=== PATIENT | male | born 1950 | race American Indian/Alaskan Native ===

== ENCOUNTER 2018-03-11 15:12 | Emergency (ER) | payer MEDICARE ==
--- NOTE | 2018-03-11 17:19 | XRay Report ---
FINAL REPORT EXAM: XR KNEE 3V RT HISTORY: fall pain r/t fall TECHNIQUE: 3 views of right knee. PRIORS: None. FINDINGS: Considerable degenerative changes in all 3 joint compartments. Probable chondrocalcinosis in bilateral menisci. Possible small intra-articular osteocartilaginous bodies scattered in the joint compartment. No apparent fracture or dislocation. Small-moderate suprapatellar joint effusion diffuse peripatellar soft tissue edema. IMPRESSION: 1. No acute osseous abnormality. 2. Degenerative changes, joint effusion and soft tissue edema.
--- NOTE | 2018-03-11 17:21 | XRay Report ---
FINAL REPORT EXAM: XR HIP 2-3V RT HISTORY: pain f/t fall TECHNIQUE: AP view of pelvis and 2 views of right hip. PRIORS: None. FINDINGS: Degenerative changes in the bilateral hip joints, marked on the right and moderate on the left. No apparent fracture or dislocation. Soft tissues grossly unremarkable. IMPRESSION: 1. No acute osseous abnormality. 2. Degenerative changes.
--- NOTE | 2018-03-11 23:36 | Emergency Department Report ---
ED Lower Extremity HPI - General Chief Complaint: Fall Stated Complaint: LOWER BODY PAIN Time Seen by Provider: 03/11/18 23:28 Source: patient Mode of arrival: Wheelchair Limitations: No Limitations - History of Present Illness Initial Comments: Patient says he tripped and fell on Saturday and landed on his right heel since then he cannot walk. He also complained of right knee pain. MD Complaint: hip injury, knee injury -: Sudden Injury: Hip: Right, Knee: Right Type of Injury: blunt Place: home Severity scale (0 -10): 8 Improves With: rest Worsens With: movement Context: fall Associated Symptoms: unable to bear weight - Related Data Previous Rx's Medication Instructions Recorded Last Taken Type ALBUTEROL Inhaler [Proair] 2 puff IH QID PRN #1 inhalation 08/20/14 Unknown Rx Amlodipine Besylate [Norvasc] 5 mg PO DAILY #30 tablet 08/20/14 Unknown Rx Budesoni/Formotero 160-4.5(Nf) 2 puff IH BID #1 inha 08/20/14 Unknown Rx [Symbicort 160-4.5] Carvedilol [Coreg] 25 mg PO BID #60 tablet 08/20/14 Unknown Rx Cefuroxime Axetil [Ceftin] 500 mg PO Q12H #14 tablet 08/20/14 Unknown Rx Doxazosin [Cardura] 4 mg PO QDAY #30 tablet 08/20/14 Unknown Rx HYDROcodone/APAP 5-325 [Carbon 1 each PO Q6HR PRN #30 tablet 08/20/14 Unknown Rx 5/325] Lisinopril/Hydrochlorothiazide 1 tab PO QDAY #30 tablet 08/20/14 Unknown Rx [Zestoretic 20-12.5 mg] metFORMIN XR [Glucophage XR] 1,000 mg PO BID #60 tab 08/20/14 Unknown Rx metFORMIN XR [Glucophage XR] 1,000 mg PO QDAY #60 tablet 08/20/14 Unknown Rx predniSONE [Deltasone] 20 mg PO QDAY #7 tab 08/20/14 Unknown Rx Ketorolac [Toradol] 10 mg PO Q6HR PRN #15 tablet 03/12/18 Unknown Rx traMADol [Ultram 50 MG tab] 50 mg PO BID PRN #12 tablet 03/12/18 Unknown Rx Allergies Allergy/AdvReac Type Severity Reaction Status Date / Time No Known Allergies Allergy Verified 08/17/14 10:08 ED Review of Systems ROS: Stated complaint: LOWER BODY PAIN Other details as noted in HPI Comment: All other systems reviewed and negative Constitutional: denies: chills, fever Eyes: denies: vision change ENT: denies: ear pain, dental pain Respiratory: no symptoms reported Cardiovascular: denies: chest pain, palpitations Endocrine: no symptoms reported Gastrointestinal: denies: abdominal pain, nausea, vomiting, diarrhea Genitourinary: denies: urgency, dysuria, frequency Musculoskeletal: joint swelling, arthralgia. denies: back pain Skin: denies: rash, lesions, change in color Neurological: denies: headache, weakness, numbness, paresthesias Psychiatric: denies: anxiety, auditory hallucinations Hematological/Lymphatic: denies: easy bleeding, easy bruising ED Past Medical Hx - Past Medical History Hx Hypertension: Yes Hx Diabetes: Yes - Surgical History Additional Surgical History: Knee Surgery - Social History Smoking Status: Current Every Day Smoker Substance Use Type: Alcohol - Medications Home Medications: Home Medications Medication Instructions Recorded Confirmed Last Taken Type ALBUTEROL Inhaler [Proair] 2 puff IH QID PRN #1 inhalation 08/20/14 Unknown Rx Amlodipine Besylate [Norvasc] 5 mg PO DAILY #30 tablet 08/20/14 Unknown Rx Budesoni/Formotero 160-4.5(Nf) 2 puff IH BID #1 inha 08/20/14 Unknown Rx [Symbicort 160-4.5] Carvedilol [Coreg] 25 mg PO BID #60 tablet 08/20/14 Unknown Rx Cefuroxime Axetil [Ceftin] 500 mg PO Q12H #14 tablet 08/20/14 Unknown Rx Doxazosin [Cardura] 4 mg PO QDAY #30 tablet 08/20/14 Unknown Rx HYDROcodone/APAP 5-325 [Carbon 1 each PO Q6HR PRN #30 tablet 08/20/14 Unknown Rx 5/325] Lisinopril/Hydrochlorothiazide 1 tab PO QDAY #30 tablet 08/20/14 Unknown Rx [Zestoretic 20-12.5 mg] metFORMIN XR [Glucophage XR] 1,000 mg PO BID #60 tab 08/20/14 Unknown Rx metFORMIN XR [Glucophage XR] 1,000 mg PO QDAY #60 tablet 08/20/14 Unknown Rx predniSONE [Deltasone] 20 mg PO QDAY #7 tab 08/20/14 Unknown Rx Ketorolac [Toradol] 10 mg PO Q6HR PRN #15 tablet 03/12/18 Unknown Rx traMADol [Ultram 50 MG tab] 50 mg PO BID PRN #12 tablet 03/12/18 Unknown Rx ED Physical Exam - General Limitations: No Limitations General appearance: alert, in no apparent distress - Head Head exam: Absent: atraumatic, normocephalic, normal inspection - Eye Eye exam: Present: normal appearance, PERRL, EOMI Pupils: Present: normal accommodation - ENT ENT exam: Present: normal exam, normal orophraynx, mucous membranes moist - Neck Neck exam: Present: normal inspection, full ROM. Absent: tenderness - Respiratory Respiratory exam: Present: normal lung sounds bilaterally - Cardiovascular Cardiovascular Exam: Present: regular rate, normal rhythm, normal heart sounds - GI/Abdominal GI/Abdominal exam: Present: soft, normal bowel sounds. Absent: distended, tenderness, guarding, rebound - Extremities Exam Extremities exam: Present: normal inspection, tenderness (right hip aand right knee), normal capillary refill - Back Exam Back exam: Present: normal inspection, full ROM. Absent: tenderness - Neurological Exam Neurological exam: Present: alert, oriented X3, CN II-XII intact - Psychiatric Psychiatric exam: Present: normal affect, normal mood - Skin Skin exam: Present: warm, dry, intact, normal color ED Course Vital Signs 03/11/18 03/11/18 15:43 23:56 Temperature 98 F Pulse Rate 116 H Respiratory 18 16 Rate Blood Pressure 149/95 O2 Sat by Pulse 96 Oximetry ED Lower Extremity MDM - Lab Data Result diagrams: 03/12/18 00:03 03/12/18 00:03 - Radiology Data Radiology results: report reviewed, image reviewed - Medical Decision Making S/P Fall. Critical care attestation.: If time is entered above; I have spent that time in minutes in the direct care of this critically ill patient, excluding procedure time. ED Disposition Clinical Impression: Arthritis Fall Qualifiers: Encounter type: initial encounter Qualified Code(s): W19.XXXA - Unspecified fall, initial encounter Disposition: DC- TO HOME OR SELFCARE Is pt being admited?: No Does the pt Need Aspirin: No Condition: Stable Instructions: Osteoarthritis (ED) Additional Instructions: Please follow up with your regular doctor tomorrow morning. Return to the ED if your condition worsens. Prescriptions: Ketorolac [Toradol] 10 mg PO Q6HR PRN #15 tablet PRN Reason: Pain traMADol [Ultram 50 MG tab] 50 mg PO BID PRN #12 tablet PRN Reason: Pain Referrals: KATALINA ANN MD [Primary Care Provider] - 3-5 Days Time of Disposition: 01:25
[2018-03-12 00:14] LABS: Basophils # (Auto) 0.2 K/mm3 (0.0-0.1); Basophils % (Auto) 1.6 % (0.0-1.8); Eosinophils # (Auto) 0.1 K/mm3 (0.0-0.4); Eosinophils % (Auto) 0.4 % (0.0-4.3); Hematocrit 45.7 % (35.5-45.6); Hemoglobin 15.1 gm/dl (11.8-15.2); Lymphocytes # (Auto) 1.5 K/mm3 (1.2-5.4); Lymphocytes % (Auto) 12.8 % (13.4-35.0); Mean Corpuscular HGB Conc 33 % (32-34); Mean Corpuscular Hemoglobin 30 pg (28-32); Mean Corpuscular Volume 91 fl (84-94); Monocytes # (Auto) 1.3 K/mm3 (0.0-0.8); Monocytes % (Auto) 10.8 % (0.0-7.3); Platelet Count 281 K/mm3 (140-440); Red Blood Count 5.04 M/mm3 (3.65-5.03)
--- NOTE | 2018-03-12 01:00 | Cat Scan Report ---
FINAL REPORT EXAM: CT CERVICAL SPINE WO CON HISTORY: fall COMPARISON: None available. TECHNIQUE: Axial images obtained through the cervical spine. Additional sagittal and coronal reformatted images were obtained. FINDINGS: Straightening of the normal lordotic curvature of the cervical spine. Cervical vertebral body heights are preserved. No acute fracture or traumatic subluxation. Odontoid process, articular pillars and occipital condyles are intact. Moderate severe loss of disc height throughout the cervical spine with prominent anterior endplate osteophyte. Mild to moderate canal stenosis and moderate severe foraminal narrowing throughout the majority the cervical spine due to endplate osteophyte, broad-based disc bulges, uncovertebral hypertrophy and facet changes. IMPRESSION: No acute fracture or subluxation of the cervical spine. There is straightening of the normal lordotic curvature which may relate to patient positioning or muscle spasm. Moderate to severe degenerative changes.
--- NOTE | 2018-03-12 01:00 | Cat Scan Report ---
FINAL REPORT EXAM: CT HEAD/BRAIN WO CON HISTORY: fall COMPARISON: None available. TECHNIQUE: Axial images obtained skull base through vertex. FINDINGS: No acute intracranial hemorrhage, midline shift or pathologic extra axial fluid collection. [id number] volume loss with compensatory dilatation of ventricular system. Small remote lacunar infarct left thalamus measuring 4 millimeters. Remote right frontal and anterior temporal lobe infarct measuring approximately 4.5 x 2.5 centimeters. Remainder of whitman-white differentiation maintained. Otherwise, whitman-white differentiation preserved. Calvarium grossly intact. Mild mucosal thickening the visualized paranasal sinuses. Mastoid air cells are clear. IMPRESSION: No grossly acute intracranial abnormality. Mild to moderate volume loss. 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
[2018-03-12 01:16] LABS: Alanine Aminotransferase 18 units/L (7-56); Albumin 4.1 g/dL (3.9-5); BUN/Creatinine Ratio 17; Blood Urea Nitrogen 12 mg/dL (9-20); Calcium 9.6 mg/dL (8.4-10.2); Hemolysis Index 3
--- NOTE | 2018-03-12 01:17 | Cat Scan Report ---
FINAL REPORT EXAM: CT LOWER EXTREMITY RT WO CON HISTORY: Right Hip and right knee pain COMPARISON: Plain films of the right hip and right knee from the same date. TECHNIQUE: Contiguous axial images were obtained. Additional sagittal and coronal reformatted images were obtained. FINDINGS: Severe narrowing the right hip joint space. Prominent osteophyte and sclerosis along the articular surface of the right hip. Moderate severe narrowing of the medial lateral joint space compartments of the knee in severe narrowing the patellofemoral joint space compartment. Chondrocalcinosis. Right femur is intact. Proximal tibia, fibula and patella are intact. No acute fracture or dislocation. Partial ankylosis of visualized SI joint. IMPRESSION: No acute fracture of the right femur or visualized portions the proximal tibia and fibula. Severe degenerative changes the right hip and knee.
[2018-03-12 01:21] LABS: INR 0.99 (0.87-1.13)
[2018-03-12 01:22] LABS: Partial Thromboplastin Time 43.4 Sec. (24.2-36.6)
[2018-03-12 01:49] VITALS: BP 146/78
== END 2018-03-12 02:15 | disposition home or self-care (01) ==
LOC: ED 15:12
DX: M25.551 Pain in right hip (principal); M25.561 Pain in right knee; I10 Essential (primary) hypertension; E11.9 Type 2 diabetes mellitus without complications; F17.200 Nicotine dependence, unspecified, uncomplicated; W01.0XXA Fall on same level from slipping, tripping and stumbling without subsequent striking against object, initial encounter; Y93.89 Activity, other specified; Y92.89 Other specified places as the place of occurrence of the external cause; Y99.8 Other external cause status
CPT/HCPCS: 36415; 70450; 72125; 80053; 82550; 85025; 85610; 85730